=== PATIENT | female | born 1955 | race Caucasian/White ===

== ENCOUNTER 2017-03-24 14:43 | Emergency (ER) | payer BC ==
[~2017-03-24] VITALS: Ht 165.1 cm; Wt 81.8 kg
[2017-03-24 14:43] VITALS: BP 137/68
[2017-03-24] MEDS ORDERED: AMOX500C PO (15:09)
[2017-03-24] MEDS ORDERED: SIMV10TA2 (15:09)
[2017-03-24 17:52] LABS: BASO # 0.1 10^3/uL (0.0-0.2); BASO % 0.8 % (0.0-1.0); EOS # 0.3 10^3/uL (0.0-0.50); EOS % 4.7 % (0.0-3.0); IMMATURE GRANULOCYTE % 0.2 % (0-0); LYMPH # 2.1 10^3/uL (1.5-4.5); LYMPH % 31.4 % (24.0-44.0); MEAN CORPUSCULAR HEMOGLOBIN 29.8 pg (27.0-33.0); MEAN CORPUSCULAR HGB CONC 33.7 g/dl (32.0-36.5); MEAN CORPUSCULAR VOLUME 88.4 fl (80.0-96.0); MONO # 0.5 10^3/uL (0.0-0.8); MONO % 7.4 % (0.0-5.0); NEUTROPHILS # 3.7 10^3/uL (1.8-7.7); NEUTROPHILS % 55.5 % (36.0-66.0); PLATELET COUNT, AUTOMATED 267 10^3/uL (150-450); RED CELL DISTRIBUTION WIDTH 12.4 % (11.5-14.5); WHITE BLOOD COUNT 6.7 10^3/uL (4.0-10.0)
[2017-03-24 18:00] LABS: ANION GAP 6 MEQ/L (8-16); BLOOD UREA NITROGEN 19 MG/DL (7-18); CALCIUM LEVEL 9.2 MG/DL (8.5-10.1); CARBON DIOXIDE LEVEL 27 MEQ/L (21-32); CHLORIDE LEVEL 107 MEQ/L (98-107); CREATININE FOR GFR 0.64 MG/DL (0.55-1.02); GLOMERULAR FILTRATION RATE > 60.0 (>51); GLUCOSE, FASTING 87 MG/DL (70-105); POTASSIUM SERUM 4.4 MEQ/L (3.5-5.1); SODIUM LEVEL 140 MEQ/L (136-145)
[2017-03-24 18:05] LABS: ADD MANUAL DIFFER NO; DIFF SLIDE NUMBER 158
[2017-03-24 18:46] LABS: ERYTHROCYTE SEDIMENTATION RATE 21 mm/hr (0-30)
--- NOTE | 2017-03-24 19:10 | REPUSA ---
CT of the facial bones without contrast Clinical history: recurrent sinusitis. Technique: Multiple axial CT images were obtained through the facial bones and paranasal sinuses util izing 3 mm axial slices without administration of contrast. Coronal and sagittal reconstructions were also obtained. Findings: There are multiple mucus retention cysts in the right maxillary sinus. The other visualized paranasal sinuses are clear. The osteomeatal complexes are patent bilaterally. The nasal septum is m idline. The visualized mastoid air cells are clear. The osseous structures do not demonstrate any acu te abnormalities. The superficial soft tissues are within normal limits. Impression: No acute evidence of sinusitis. Multiple chronic mucus retention cyst are seen in the rig ht maxillary sinus.
[2017-03-24] MEDS ORDERED: CLAR1TAB2 PO (19:18)
[2017-03-24] MEDS ORDERED: FLON1SPR (19:18)
== END 2017-03-24 19:37 | disposition home or self-care (01) ==
LOC: M ED 14:43
DX: R51 Headache (principal); E78.00 Pure hypercholesterolemia, unspecified; F17.210 Nicotine dependence, cigarettes, uncomplicated; Z79.2 Long term (current) use of antibiotics; Z79.899 Other long term (current) drug therapy; Z88.8 Allergy status to other drugs, medicaments and biological substances